=== PATIENT | female | born 1965 | race American Indian/Alaskan Native ===

== ENCOUNTER 2017-11-04 18:18 | Emergency (ER) | payer BC, OTHER ==
[2017-11-04 18:32] VITALS: BP 151/81; PULSE 82; RESP 16; TEMP 98.4; O2SAT 99
--- NOTE | 2017-11-04 19:40 | ED PDOC ---
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 denies: Sputum Additional History Per: Patient Additional Complaint(s): 51yo female, presents to ER for evaluation of bodyaches and since last week, she has been having a dry cough, sore throat, and bodyaches. Patient states she visited her PMD who informed her she might he coming down with something and gave her medication for sinus congestion. Patient states since then, she has had increased pain to the right side of her neck and today felt lightheaded and thought she was going to pass out. She also reports nausea but denies any vomiting, diarrhea, o constipation. She also denies any rhinorrhea, rash, swelling or recent travels. 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 She denies any other medical complaints. PMD: Dennis Tate Past Medical History Reviewed: Historical Data, Nursing Documentation, Vital Signs Vital Signs: Last Vital Signs Temp 98.4 F 11/04/17 18:29 Pulse 82 11/04/17 18:29 Resp 16 11/04/17 18:29 BP 151/81 H 11/04/17 18:29 Pulse Ox 99 11/04/17 19:53 - Medical History PMH: No Chronic Diseases - Surgical History Surgical History: ( x 2) - Family History Family History: States: CAD, Other Other Family History: cancer - Social History Current smoker - smoking cessation education provided: No Alcohol: Occasional Drugs: Denies - Home Medications Home Medications: Ambulatory Orders Medication Instructions Recorded LORazepam [Ativan] 1 mg PO Q12 PRN #6 tab 12/11/14 Cyclobenzaprine [Flexeril] 5 mg PO Q8 PRN #10 tab 11/04/17 Ibuprofen [Motrin Tab] 600 mg PO Q8 PRN #60 tab 11/04/17 Lidocaine 5% [Lidoderm] 1 ea TD DAILY PRN #10 patch 11/04/17 - Allergies Allergies/Adverse Reactions: Allergies Allergy/AdvReac Type Severity Reaction Status Date / Time pain medication Allergy numbness Uncoded 11/04/17 18:29 Curb-65 Severity Score - CURB-65 Severity Score Confusion: No Bun >19mg/dl (>7mmol/L): No Respiratory Rate greater than/equal to 30: No Systolic BP <90 or Diastolic BP less than/equal 60mmHg: No Age >64: No Curb-65 Score: 0 Percentage 30-day mortality: 0.6% Review of Systems ROS Statement: Except As Marked, All Systems Reviewed And Found Negative (as per HPI) Constitutional: Positive for: Malaise ENT: Positive for: Throat Pain Cardiovascular: Positive for: Light Headedness Respiratory: Positive for: Cough. Negative for: Sputum Gastrointestinal: Positive for: Nausea. Negative for: Vomiting, Diarrhea Physical Exam - Reviewed Nursing Documentation Reviewed: Yes Vital Signs Reviewed: Yes - Physical Exam Appears: Positive for: Non-toxic, No Acute Distress Head Exam: Positive for: ATRAUMATIC, NORMOCEPHALIC Skin: Positive for: Warm, Dry Eye Exam: Positive for: EOMI, PERRL ENT: Positive for: Pharyngeal Erythema (mild), Other (subtle uvula edema vs. anatommic variant of uvula). Negative for: Tonsillar Exudate, Tonsillar Swelling Neck: Positive for: Normal, Supple (tenderness to palpation of right paraspinal muscles; no bony tenderness, no meningismus) Cardiovascular/Chest: Positive for: Regular Rate, Rhythm, Chest Non Tender. Negative for: Murmur Respiratory: Positive for: Normal Breath Sounds. Negative for: Wheezing Gastrointestinal/Abdominal: Positive for: Soft. Negative for: Tenderness Back: Positive for: Normal Inspection. Negative for: Decreased ROM Extremity: Positive for: Normal ROM. Negative for: Deformity Lymphatic: Negative for: Adenopathy Neurologic/Psych: Positive for: Alert, Oriented. Negative for: Motor/Sensory Deficits - Laboratory Results Result Diagrams: 11/04/17 19:45 11/04/17 19:45 - ECG O2 Sat by Pulse Oximetry: 99 (RA) Pulse Ox Interpretation: Normal Medical Decision Making Medical Decision Making: Impression: Bodyaches and URI Differential: Including but not limited to viral illness, influenza, strep throat, dehydration, electrolyte abnormalities Plan: -- EKG -- Labs -- Tylenol 975 mg PO -- Toradol 30mg IV -- Infectious mono -- Rapid flu -- Rapid strep Labs unremarkable CXR No inf/eff Cspine: No fx/dislocation DW pt findings and plan of care. Continue allergy medications. rest. anti- inflammatory. f/u pmd. 2-3 days. Scribe Attestation: Documented by Chantelle Fitzpatrick, acting as a scribe for Kelly Flood MD Provider Scribe Attestation: All medical record entries made by the Scribe were at my direction and personally dictated by me. I have reviewed the chart and agree that the record accurately reflects my personal performance of the history, physical exam, medical decision making, and the department course for this patient. I have also personally directed, reviewed, and agree with the discharge instructions and disposition. Disposition - Clinical Impression Clinical Impression: Myalgia, Torticollis Counseled Patient/Family Regarding: Studies Performed, Diagnosis, Need For Followup, Rx Given - Disposition Referrals: Barbie Coe MD [Medical Doctor] - 11/08/17 Disposition: Routine/Home Disposition Time: 22:17 Condition: GOOD Prescriptions: Cyclobenzaprine [Flexeril] 5 mg PO Q8 PRN #10 tab PRN Reason: muscle spasm Ibuprofen [Motrin Tab] 600 mg PO Q8 PRN #60 tab PRN Reason: Pain, Moderate (4-7) Lidocaine 5% [Lidoderm] 1 ea TD DAILY PRN #10 patch PRN Reason: PAIN Instructions: Torticollis, Adult, Muscle and Bone Pain (DC) Forms: [facility] ED School/Work Excuse
[2017-11-04 20:10] LABS: BASO # 0.1 K/uL (0.0-0.2); BASO % 0.7 % (0.0-2.0); EOS # 0.3 K/uL (0.0-0.7); EOS % 2.8 % (0.0-4.0); HEMOGLOBIN 12.1 g/dL (12.0-16.0); LYMPH # 4.2 K/uL (1.0-4.3); LYMPH % 37.8 % (20.0-40.0); MEAN CELL VOLUME 84.2 fl (81.0-99.0); MEAN CORPUSCULAR HEMOGLOBIN 28.1 pg (27.0-31.0); MEAN CORPUSCULAR HGB CONC 33.4 g/dL (33.0-37.0); MEAN PLATELET VOLUME 8.1 fl (7.2-11.7); MONO # 1.1 K/uL (0.0-0.8); MONO % 9.6 % (0.0-10.0); NEUT # 5.5 K/uL (1.8-7.0); NEUT % 49.1 % (50.0-75.0); NRBC % 0.1 % (0.0-0.0); RBC 4.32 Mil/uL (3.80-5.20); RED CELL DISTRIBUTION WIDTH 13.7 % (11.5-14.5); WHITE BLOOD COUNT 11.2 K/uL (4.8-10.8)
[2017-11-04 20:18] LABS: ALB/GLOB RATIO 1.1 (1.0-2.1); ALBUMIN 4.3 g/dL (3.5-5.0); ALT/SGPT 29 U/L (9-52); AST/SGOT 30 U/L (14-36); BLOOD UREA NITROGEN 11 mg/dl (7-17); CALCIUM 9.6 mg/dL (8.4-10.2); GFR AFRICAN-AMERICAN > 60; GFR NON-AFRICAN AMERICAN > 60
--- NOTE | 2017-11-05 08:29 | RAD ---
PROCEDURE: Cervical Spine Radiographs. HISTORY: Pain. COMPARISON: None. FINDINGS: BONES: Limited spondylolisthesis appreciated C4-5 without definite fracture appreciable. C4 slightly anterior to C5 by 2 mm. Multilevel facet arthropathy is appreciate which could be the cause of the spondylolisthesis. The curvature is otherwise straightened. Gross osteophytic development seen anteriorly at C5-6 with none otherwise evident. The odontoid process appears intact. No destructive bony lesion appreciated. DISC SPACES: Normal. SOFT TISSUES: Normal. No prevertebral soft tissue swelling. OTHER FINDINGS: None. IMPRESSION: Limited grade 1 spondylolisthesis C4-5 tension on the basis of facet arthropathy. No fracture appreciable grossly. Advanced spondylosis C5-6 anteriorly. Further characterization can provided by CT or MRI as clinically warranted.
--- NOTE | 2017-11-05 08:45 | RAD ---
HISTORY: cough bodyaches COMPARISON: Chest radiographs 03/21/2016. TECHNIQUE: Chest PA and lateral FINDINGS: LUNGS: No active pulmonary disease. PLEURA: No significant pleural effusion identified. No pneumothorax apparent. CARDIOVASCULAR: Normal. OSSEOUS STRUCTURES: No significant abnormalities. VISUALIZED UPPER ABDOMEN: Normal. OTHER FINDINGS: None. IMPRESSION: No interval acute cardiopulmonary disease appreciated.
--- NOTE | 2017-11-05 17:50 | CARD ---
APPROVED REPORT EKG Measurement Heart [id number] <Conclusion> Normal sinus rhythm with sinus arrhythmia Normal ECG
== END 2017-11-04 23:11 | disposition home or self-care (01) ==
LOC: H.ER 18:18
DX: M79.1 Myalgia (principal); M43.6 Torticollis
CPT/HCPCS: 71046; 72040; 80053; 81025; 82550; 82948; 83605; 83735; 84100; 85025; 86308; 87040; 87070; 87430; 87804; 93005; 96374; 99285; J1885

== ENCOUNTER 2017-12-31 15:48 | Observation (INO) | payer BC ==
[2017-12-31 15:57] VITALS: BMI 31.4
--- NOTE | 2017-12-31 17:44 | ED PDOC ---
HPI: Chest Pain Time Seen by Provider: 12/31/17 16:38 Chief Complaint (Nursing): Chest Pain Chief Complaint (Provider): CP History Per: Patient History/Exam Limitations: no limitations Additional Complaint(s): Pt reports midsternal chest pain that started while walking today, associated with SOB and palpitations, lasted ~3 minutes, resolved with rest. Now with upper back pain. Denies fever, nausea, vomiting, cough. Past Medical History Reviewed: Nursing Documentation, Vital Signs Vital Signs: Last Vital Signs Temp 98.2 F 01/01/18 12:41 Pulse 76 01/01/18 12:41 Resp 20 01/01/18 12:41 BP 119/77 01/01/18 12:41 Pulse Ox 100 01/01/18 12:41 - Medical History PMH: No Chronic Diseases - Surgical History Surgical History: ( x 2) - Family History Family History: States: CAD (Brother [place] 50s) - Living Arrangements Living Arrangements: With Family - Social History Current smoker - smoking cessation education provided: No Alcohol: None - Home Medications Home Medications: Ambulatory Orders Medication Instructions Recorded Cyclobenzaprine [Flexeril] 5 mg PO Q8 PRN #10 tab 11/04/17 Ibuprofen [Motrin Tab] 600 mg PO Q8 PRN #60 tab 11/04/17 Aspirin [Aspirin Chewable] 81 mg PO DAILY chew 01/01/18 - Allergies Allergies/Adverse Reactions: Allergies Allergy/AdvReac Type Severity Reaction Status Date / Time pain medication Allergy numbness Uncoded 12/31/17 15:59 SILAS Risk Score for UA/NSTEMI - SILAS Risk Score Age > 64: NO 3 or more CAD Risk Factors: NO Known CAD (Stenosis greater than 50%): NO Aspirin use in past 7 days: NO Severe Angina: YES EKG ST changes greater than 0.5mm: NO Positive Cardiac Marker: NO SILAS Score: 1 Risk %: 5% Review of Systems Constitutional: Negative for: Fever, Chills Cardiovascular: Positive for: Chest Pain, Palpitations Respiratory: Positive for: Shortness of Breath. Negative for: Cough, Sputum, Wheezing Gastrointestinal: Negative for: Nausea, Vomiting, Abdominal Pain, Diarrhea Musculoskeletal: Positive for: Neck Pain, Back Pain. Negative for: Leg Pain Skin: Negative for: Rash, Lesions Neurological: Positive for: Dizziness. Negative for: Weakness, Numbness, Headache Physical Exam - Reviewed Nursing Documentation Reviewed: Yes Vital Signs Reviewed: Yes - Physical Exam Appears: Positive for: Well, No Acute Distress (Speaking full sentences) Skin: Positive for: Normal Color, Warm, Dry Eye Exam: Positive for: Normal appearance, EOMI, PERRL Cardiovascular/Chest: Positive for: Regular Rate, Rhythm Respiratory: Positive for: Normal Breath Sounds. Negative for: Rales, Rhonchi, Wheezing Gastrointestinal/Abdominal: Positive for: Normal Exam Back: Positive for: Normal Inspection Extremity: Positive for: Normal ROM. Negative for: Tenderness, Pedal Edema, Swelling Neurologic/Psych: Positive for: Alert, lsw II-XII, Oriented - Laboratory Results Result Diagrams: 12/31/17 18:02 01/01/18 04:45 - ECG Interpretation Of ECG: NSR @ 89, no ST-T changes. O2 Sat by Pulse Oximetry: 100 Pulse Ox Interpretation: Normal Medical Decision Making Medical Decision Makin yo female with CP, SOB and palpitations. - labs - EKG - CXR Accession No. : [id number] Patient Name / ID : FANNIE VAUGHAN / [id number] Exam Date : 12/31/2017 18:01:01 ( Approved ) Study Comment : Sex / Age : F / 52Y Creator : suzan schwartz Dictator : George Middleton MD Flower Grader : Dry Heat Cabinet Attendant : George Middleton MD Approver2 : Report Date : 12/31/2017 18:14:18 My Comment : HISTORY: CP COMPARISON: Chest radiograph dated 11/04/2017. FINDINGS: LUNGS: No active pulmonary disease. PLEURA: No significant pleural effusion identified, no pneumothorax apparent. CARDIOVASCULAR: Normal. OSSEOUS STRUCTURES: Unchanged. VISUALIZED UPPER ABDOMEN: Normal. OTHER FINDINGS: None. IMPRESSION: No active disease. Disposition - Clinical Impression Clinical Impression: Acute chest pain - Patient ED Disposition Is Patient to be Admitted: Yes - Disposition Disposition Time: 19:11 Condition: STABLE - Pt Status Changed To: Hospital Disposition Of: Observation - POA Present On Arrival: None
[2017-12-31 18:06] LABS: BASO % 0.4 % (0.0-2.0); EOS # 0.2 K/uL (0.0-0.7); EOS % 1.9 % (0.0-4.0); HEMOGLOBIN 12.1 g/dL (12.0-16.0); LYMPH # 3.4 K/uL (1.0-4.3); LYMPH % 33.7 % (20.0-40.0); MEAN CELL VOLUME 83.2 fl (81.0-99.0); MEAN CORPUSCULAR HEMOGLOBIN 27.9 pg (27.0-31.0); MEAN CORPUSCULAR HGB CONC 33.6 g/dL (33.0-37.0); MEAN PLATELET VOLUME 7.8 fl (7.2-11.7); MONO % 9.6 % (0.0-10.0); NEUT # 5.4 K/uL (1.8-7.0); NEUT % 54.4 % (50.0-75.0); NRBC % 0.2 % (0.0-0.0); RBC 4.35 Mil/uL (3.80-5.20); RED CELL DISTRIBUTION WIDTH 13.6 % (11.5-14.5)
--- NOTE | 2017-12-31 18:21 | RAD ---
HISTORY: CP COMPARISON: Chest radiograph dated 11/04/2017. FINDINGS: LUNGS: No active pulmonary disease. PLEURA: No significant pleural effusion identified, no pneumothorax apparent. CARDIOVASCULAR: Normal. OSSEOUS STRUCTURES: Unchanged. VISUALIZED UPPER ABDOMEN: Normal. OTHER FINDINGS: None. IMPRESSION: No active disease.
[2017-12-31 18:23] LABS: INR 1.1 (0.9-1.2); PROTHROMBIN TIME 12.2 Seconds (9.8-13.1)
[2017-12-31 18:36] LABS: ALB/GLOB RATIO 1.2 (1.0-2.1); ALBUMIN 4.4 g/dL (3.5-5.0); ALT/SGPT 23 U/L (9-52); AST/SGOT 24 U/L (14-36); BLOOD UREA NITROGEN 13 mg/dl (7-17); CALCIUM 9.6 mg/dL (8.4-10.2); GFR AFRICAN-AMERICAN > 60; GFR NON-AFRICAN AMERICAN > 60
[2017-12-31 20:00] LABS: SQUAMOUS EPITHIAL 7 /hpf (0-5); URINE BACTERIA FEW (<OCC); URINE BILIRUBIN NEGATIVE (NEGATIVE); URINE BLOOD NEGATIVE (NEGATIVE); URINE CLARITY CLOUDY (Clear); URINE COLOR YELLOW (YELLOW); URINE GLUCOSE (UA) NEG (Normal); URINE LEUKOCYTE ESTERASE LARGE Leu/uL (Negative); URINE PROTEIN NEGATIVE (NEGATIVE); URINE UROBILINOGEN 0.2-1.0 mg/dL (0.2-1.0)
[2018-01-01 06:22] LABS: ALB/GLOB RATIO 1.2 (1.0-2.1); ALBUMIN 4.1 g/dL (3.5-5.0); ALT/SGPT 22 U/L (9-52); AST/SGOT 21 U/L (14-36); BLOOD UREA NITROGEN 9 mg/dl (7-17); CALCIUM 9.4 mg/dL (8.4-10.2); GFR AFRICAN-AMERICAN > 60; GFR NON-AFRICAN AMERICAN > 60; HDL CHOLESTEROL 35 MG/DL (30-70)
[2018-01-01 06:30] LABS: LDL CHOLESTEROL 137 mg/dL (0-129)
--- NOTE | 2018-01-01 07:59 | CP.PCM.HP ---
History of Present Illness - History of Present Illness History of Present Illness: pt admitted for cp. states pain was described as "discomfort". denies pain any other complaints at present. no f/c, n/v/d. trops noted. outpt echo noted. pt has been under care for cp x 2 months Present on Admission - Present on Admission Any Indicators Present on Admission: No Review of Systems - Cardiovascular Cardiovascular: As Per HPI, Chest Pain - Musculoskeletal Musculoskeletal: As Per HPI, Back Pain Past Patient History - Infectious Disease Hx of Infectious Diseases: None - Past Medical History & Family History Past Medical History?: Yes - Past Social History Smoking Status: Never Smoked - CARDIAC Hx Cardiac Disorders: Yes Hx Hypertension: Yes - PULMONARY Hx Respiratory Disorders: No - NEUROLOGICAL Hx Neurological Disorder: Yes Hx Vertigo: Yes - HEENT Hx HEENT Problems: No - RENAL Hx Chronic Kidney Disease: No - ENDOCRINE/METABOLIC Hx Endocrine Disorders: No - HEMATOLOGICAL/ONCOLOGICAL Hx Blood Disorders: No Hx AIDS: No Hx Human Immunodeficiency Virus (HIV): No - INTEGUMENTARY Hx Dermatological Problems: No - MUSCULOSKELETAL/RHEUMATOLOGICAL Hx Musculoskeletal Disorders: No Hx Falls: No - GASTROINTESTINAL Hx Gastrointestinal Disorders: No - GENITOURINARY/GYNECOLOGICAL Hx Genitourinary Disorders: No - PSYCHIATRIC Hx Psychophysiologic Disorder: No Hx Substance Use: No - SURGICAL HISTORY Hx Surgeries: Yes Hx Section: Yes (x2) Hx Tubal Ligation: Yes - ANESTHESIA Hx Anesthesia: Yes Hx Anesthesia Reactions: No Meds Allergies/Adverse Reactions: Allergies Allergy/AdvReac Type Severity Reaction Status Date / Time pain medication Allergy numbness Uncoded 12/31/17 15:59 Physical Exam - Constitutional Appears: Well, Non-toxic, No Acute Distress - Head Exam Head Exam: ATRAUMATIC, NORMAL INSPECTION, NORMOCEPHALIC - Eye Exam Eye Exam: EOMI, Normal appearance, PERRL Pupil Exam: NORMAL ACCOMODATION, PERRL - ENT Exam ENT Exam: Mucous Membranes Moist, Normal Exam - Neck Exam Neck exam: Positive for: Normal Inspection - Respiratory Exam Respiratory Exam: Clear to Auscultation Bilateral, NORMAL BREATHING PATTERN - Cardiovascular Exam Cardiovascular Exam: REGULAR RHYTHM, RRR, +S1, +S2 - GI/Abdominal Exam GI & Abdominal Exam: Normal Bowel Sounds, Soft. absent: Tenderness - Exam External exam: NORMAL EXTERNAL EXAM - Extremities Exam Extremities exam: Positive for: full ROM, normal capillary refill, normal inspection, pedal pulses present - Back Exam Back exam: FULL ROM, NORMAL INSPECTION - Neurological Exam Neurological exam: Alert, CN II-XII Intact, Normal Gait, Oriented x3, Reflexes Normal - Psychiatric Exam Psychiatric exam: Normal Affect, Normal Mood - Skin Skin Exam: Dry, Intact, Normal Color, Warm Results - Vital Signs Recent Vital Signs: Last Vital Signs Temp 98.1 F 01/01/18 05:20 Pulse 73 01/01/18 05:20 Resp 18 01/01/18 05:20 BP 117/73 01/01/18 05:20 Pulse Ox 100 01/01/18 05:20 - Labs Result Diagrams: 12/31/17 18:02 01/01/18 04:45 Labs: Laboratory Results - last 24 hr 12/31/17 12/31/17 12/31/17 18:02 18:02 18:02 WBC 10.0 RBC 4.35 Hgb 12.1 Hct 36.2 MCV 83.2 MCH 27.9 MCHC 33.6 RDW 13.6 Plt Count 323 MPV 7.8 Neut % (Auto) 54.4 Lymph % (Auto) 33.7 Gove % (Auto) 9.6 Eos % (Auto) 1.9 Baso % (Auto) 0.4 Neut # (Auto) 5.4 Lymph # (Auto) 3.4 Gove # (Auto) 1.0 H Eos # (Auto) 0.2 Baso # (Auto) 0.0 PT 12.2 INR 1.1 APTT 29.0 D-Dimer, Quantitative 108 Sodium 141 Potassium 3.9 Chloride 105 Carbon Dioxide 23 Anion Gap 17 BUN 13 Creatinine 0.7 Est GFR ( Amer) > 60 Est GFR (Non-Af Amer) > 60 Random Glucose 86 Calcium 9.6 Total Bilirubin 0.8 AST 24 ALT 23 Alkaline Phosphatase 83 Troponin I < 0.0120 Total Protein 8.1 Albumin 4.4 Globulin 3.7 Albumin/Globulin Ratio 1.2 Triglycerides Cholesterol LDL Cholesterol Direct HDL Cholesterol TSH 3rd Generation 0.43 L Urine Color Urine Clarity Urine pH Ur Specific [place] Urine Protein Urine Glucose (UA) Urine Ketones Urine Blood Urine Nitrate Urine Bilirubin Urine Urobilinogen Ur Leukocyte Esterase Urine RBC (Auto) Urine Microscopic WBC Ur Squamous Epith Cells Urine Bacteria 12/31/17 01/01/18 19:32 04:45 WBC RBC Hgb Hct MCV MCH MCHC RDW Plt Count MPV Neut % (Auto) Lymph % (Auto) Gove % (Auto) Eos % (Auto) Baso % (Auto) Neut # (Auto) Lymph # (Auto) Gove # (Auto) Eos # (Auto) Baso # (Auto) PT INR APTT D-Dimer, Quantitative Sodium 141 Potassium 4.1 Chloride 103 Carbon Dioxide 26 Anion Gap 16 BUN 9 Creatinine 0.7 Est GFR ( Amer) > 60 Est GFR (Non-Af Amer) > 60 Random Glucose 95 Calcium 9.4 Total Bilirubin 1.2 AST 21 ALT 22 Alkaline Phosphatase 75 Troponin I < 0.0120 Total Protein 7.6 Albumin 4.1 Globulin 3.5 Albumin/Globulin Ratio 1.2 Triglycerides 142 Cholesterol 214 H LDL Cholesterol Direct 137 H HDL Cholesterol 35 TSH 3rd Generation Urine Color Yellow Urine Clarity Cloudy Urine pH 6.0 Ur Specific [place] 1.020 Urine Protein Negative Urine Glucose (UA) Neg Urine Ketones Negative Urine Blood Negative Urine Nitrate Negative Urine Bilirubin Negative Urine Urobilinogen 0.2-1.0 Ur Leukocyte Esterase Large Urine RBC (Auto) 2 Urine Microscopic WBC 232 H Ur Squamous Epith Cells 7 H Urine Bacteria Few H Assessment & Plan (1) Chest pain Assessment and Plan: trop neg x 2, asa cardio trop at 12noon outpt echo noted ?? muscular Status: Acute (2) DVT prophylaxis Assessment and Plan: scd and ae hose ambulation Status: Acute Decision To Admit - Pt Status Changed To: Hospital Disposition Of: Observation - . Bed Request Type: Telemetry Admitting Physician: Timbo Sherman
[2018-01-01 08:15] VITALS: RESP 20
[2018-01-01 09:58] VITALS: PULSE 76
--- NOTE | 2018-01-01 10:56 | CP.PCM.CON ---
History of Present Illness - History of Present Illness History of Present Illness: I was asked to see patient by Dr Sabillon. Patient is a 52 year old female with no sginficant PMH who presents with chest pain. Symptoms have been intermittent for the last few days. She describes substernal pressure and sharp pain of the chest. She felt dyspneic and presented to [facility]. She denies current chest pain. Review of Systems - Constitutional Constitutional: absent: As Per HPI, Anorexia, Chills, Daytime Sleepiness, Excessive Sweating, Fatigue, Fever, Frequent Falls, Headache, Increased Appetite , Lethargy, Malaise, Night Sweats, Snoring, Sleep Apnea, Weight Gain, Weight Loss, Weakness, Other - EENT Eyes: absent: As Per HPI, Blind Spots, Blurred Vision, Change in Vision, Decreased Night Vision, Diplopia, Discharge, Dry Eye, Exophthalmos, Floaters, Irritation, Itchy Eyes, Loss of Peripheral Vision, Pain, Photophobia, Requires Corrective Lenses, Sees Flashes, Spots in Vision, Tunnel Vision, Other Visual Disturbances, Loss of Vision, Other Ears: absent: As Per HPI, Decreased Hearing, Ear Discharge, Ear Pain, Tinnitus, Abnormal Hearing, Disequilibrium, Dizziness, Other Nose/Mouth/Throat: absent: As Per HPI, Epistaxis, Nasal Congestion, Nasal Discharge, Nasal Obstruction, Nasal Trauma, Nose Pain, Post Nasal Drip, Sinus Pain, Sinus Pressure, Bleeding Gums, Change in Voice, Dental Pain, Dry Mouth, Dysphagia, Halitosis, Hoarsness, Lip Swelling, Mouth Lesions, Mouth Pain, Odynophagia, Sore Throat, Throat Swelling, Tongue Swelling, Facial Pain, Neck Pain, Neck Mass, Other - Cardiovascular Cardiovascular: Chest Pain, Dyspnea - Respiratory Respiratory: Dyspnea - Gastrointestinal Gastrointestinal: absent: As Per HPI, Abdominal Pain, Belching, Bloating, Change in Bowel Habits, Change in Stool Character, Coffee Ground Emesis, Constipation, Cramping, Diarrhea, Dyspepsia, Dysphagia, Early Satiety, Excessive Flatus, Fecal Incontinence, Heartburn, Hematemesis, Hematochezia, Loose Stools, Melena, Nausea, Odynophagia, Temesmus, Vomiting, Other - Genitourinary Genitourinary: absent: As Per HPI, Change in Urinary Stream, Difficulty Urinating, Dysuria, Flank Pain, Hematuria, Pyuria, Nocturia, Urinary Incontinence, Urinary Frequency, Urinary Hesitance, Urinary Urgency, Voiding Freq/Small Amts, Freq UTI, Hx Renal/Bladder Calculi, Hx /Renal Surgery, Bladder Distension, Other - Musculoskeletal Musculoskeletal: absent: As Per HPI, Abnormal Gait, Arthralgias, Atrophy, Back Pain, Deformity, Joint Swelling, Limited Range of Motion, Loss of Height, Muscle Cramps, Muscle Weakness, Myalgias, Neck Pain, Numbness, Radiating Pain into Limb, Stiffness, Tingling, Other - Integumentary Integumentary: absent: As Per HPI, Acne, Alopecia, Bleeding Lesions, Change in Hair, Change in Nails, Change in Pigmentation, Changing Lesions, Dry Skin, Erythema, Furuncle, Hirsutism, Lesions, New Lesions, Non-Healing Lesions, Photosensitivity, Pruritus, Rash, Skin Pain, Skin Ulcer, Sores, Striae, Swelling , Unusual Bruising, Wounds, Jaundice, Other - Neurological Neurological: absent: As Per HPI, Abnormal Gait, Abnormal Hearing, Abnormal Movements, Abnormal Speech, Behavioral Changes, Burning Sensations, Confusion, Convulsions, Disequilibrium, Dizziness, Numbness, Focal Weakness, Frequent Falls , Headaches, Lack of Coordination, Loss of Vision, Memory Loss, Paresthesias, Radicular Pain, Restless Legs, Sensory Deficit, Syncope, Tingling, Tremor, Vertigo, Weakness, Other Visual Disturbances, Other - Psychiatric Psychiatric: absent: As Per HPI, Abnormal Sleep Pattern, Anhedonia, Anxiety, Auditory Hallucinations, Behavioral Changes, Change in Appetite, Change in Libido, Confusion, Depression, Difficulty Concentrating, Hallucinations, Homicidal Ideation, Hopelessness, Irritability, Memory Loss, Mood Swings, Panic Attacks, Paranoia, Suicidal Ideation, Visual Hallucinations, Tactile Hallucinations, Other - Endocrine Endocrine: absent: As Per HPI, Change in Body Appearance, Change in Libido, Cold Intolorance, Deepening of Voice, Excessive Sweating, Fatigue, Flushing, Heat Intolorance, Increase in Ring/Shoe/Hat Size, Palpitations, Polydipsia, Polyphagia, Polyuria, Other - Hematologic/Lymphatic Hematologic: absent: As Per HPI, Easy Bleeding, Easy Bruising, Lymphadenopathy, Other Past Patient History - Infectious Disease Hx of Infectious Diseases: None - Past Medical History & Family History Past Medical History?: Yes - Past Social History Smoking Status: Never Smoked - CARDIAC Hx Cardiac Disorders: Yes Hx Hypertension: Yes - PULMONARY Hx Respiratory Disorders: No - NEUROLOGICAL Hx Neurological Disorder: Yes Hx Vertigo: Yes - HEENT Hx HEENT Problems: No - RENAL Hx Chronic Kidney Disease: No - ENDOCRINE/METABOLIC Hx Endocrine Disorders: No - HEMATOLOGICAL/ONCOLOGICAL Hx Blood Disorders: No Hx AIDS: No Hx Human Immunodeficiency Virus (HIV): No - INTEGUMENTARY Hx Dermatological Problems: No - MUSCULOSKELETAL/RHEUMATOLOGICAL Hx Musculoskeletal Disorders: No Hx Falls: No - GASTROINTESTINAL Hx Gastrointestinal Disorders: No - GENITOURINARY/GYNECOLOGICAL Hx Genitourinary Disorders: No - PSYCHIATRIC Hx Psychophysiologic Disorder: No Hx Substance Use: No - SURGICAL HISTORY Hx Surgeries: Yes Hx Section: Yes (x2) Hx Tubal Ligation: Yes - ANESTHESIA Hx Anesthesia: Yes Hx Anesthesia Reactions: No Meds Allergies/Adverse Reactions: Allergies Allergy/AdvReac Type Severity Reaction Status Date / Time pain medication Allergy numbness Uncoded 12/31/17 15:59 - Medications Medications: Current Medications Aspirin (Aspirin Chewable) 81 mg PO DAILY WENDY Last Admin: 01/01/18 09:33 Dose: 81 mg Physical Exam - Constitutional Appears: Non-toxic - Head Exam Head Exam: NORMAL INSPECTION - Eye Exam Eye Exam: Normal appearance - ENT Exam ENT Exam: Mucous Membranes Moist - Neck Exam Neck exam: Positive for: Full Rom - Respiratory Exam Respiratory Exam: NORMAL BREATHING PATTERN - Cardiovascular Exam Cardiovascular Exam: REGULAR RHYTHM - GI/Abdominal Exam GI & Abdominal Exam: Normal Bowel Sounds - Rectal Exam Rectal Exam: Deferred - Extremities Exam Extremities exam: Positive for: normal inspection. Negative for: pedal edema - Back Exam Back exam: NORMAL INSPECTION - Neurological Exam Neurological exam: Alert, Oriented x3 - Psychiatric Exam Psychiatric exam: Normal Affect - Skin Skin Exam: Normal Color Results - Vital Signs Recent Vital Signs: Last Vital Signs Temp 98.1 F 01/01/18 09:00 Pulse 76 01/01/18 09:00 Resp 20 01/01/18 09:00 BP 105/64 01/01/18 09:00 Pulse Ox 99 01/01/18 09:00 - Labs Result Diagrams: 12/31/17 18:02 01/01/18 04:45 Labs: Laboratory Results - last 24 hr 12/31/17 12/31/17 12/31/17 18:02 18:02 18:02 WBC 10.0 RBC 4.35 Hgb 12.1 Hct 36.2 MCV 83.2 MCH 27.9 MCHC 33.6 RDW 13.6 Plt Count 323 MPV 7.8 Neut % (Auto) 54.4 Lymph % (Auto) 33.7 [place] % (Auto) 9.6 Eos % (Auto) 1.9 Baso % (Auto) 0.4 Neut # (Auto) 5.4 Lymph # (Auto) 3.4 [place] # (Auto) 1.0 H Eos # (Auto) 0.2 Baso # (Auto) 0.0 PT 12.2 INR 1.1 APTT 29.0 D-Dimer, Quantitative 108 Sodium 141 Potassium 3.9 Chloride 105 Carbon Dioxide 23 Anion Gap 17 BUN 13 Creatinine 0.7 Est GFR ( Amer) > 60 Est GFR (Non-Af Amer) > 60 Random Glucose 86 Calcium 9.6 Total Bilirubin 0.8 AST 24 ALT 23 Alkaline Phosphatase 83 Troponin I < 0.0120 Total Protein 8.1 Albumin 4.4 Globulin 3.7 Albumin/Globulin Ratio 1.2 Triglycerides Cholesterol LDL Cholesterol Direct HDL Cholesterol TSH 3rd Generation 0.43 L Urine Color Urine Clarity Urine pH Ur Specific [place] Urine Protein Urine Glucose (UA) Urine Ketones Urine Blood Urine Nitrate Urine Bilirubin Urine Urobilinogen Ur Leukocyte Esterase Urine RBC (Auto) Urine Microscopic WBC Ur Squamous Epith Cells Urine Bacteria 12/31/17 01/01/18 19:32 04:45 WBC RBC Hgb Hct MCV MCH MCHC RDW Plt Count MPV Neut % (Auto) Lymph % (Auto) [place] % (Auto) Eos % (Auto) Baso % (Auto) Neut # (Auto) Lymph # (Auto) [place] # (Auto) Eos # (Auto) Baso # (Auto) PT INR APTT D-Dimer, Quantitative Sodium 141 Potassium 4.1 Chloride 103 Carbon Dioxide 26 Anion Gap 16 BUN 9 Creatinine 0.7 Est GFR ( Amer) > 60 Est GFR (Non-Af Amer) > 60 Random Glucose 95 Calcium 9.4 Total Bilirubin 1.2 AST 21 ALT 22 Alkaline Phosphatase 75 Troponin I < 0.0120 Total Protein 7.6 Albumin 4.1 Globulin 3.5 Albumin/Globulin Ratio 1.2 Triglycerides 142 Cholesterol 214 H LDL Cholesterol Direct 137 H HDL Cholesterol 35 TSH 3rd Generation Urine Color Yellow Urine Clarity Cloudy Urine pH 6.0 Ur Specific [place] 1.020 Urine Protein Negative Urine Glucose (UA) Neg Urine Ketones Negative Urine Blood Negative Urine Nitrate Negative Urine Bilirubin Negative Urine Urobilinogen 0.2-1.0 Ur Leukocyte Esterase Large Urine RBC (Auto) 2 Urine Microscopic WBC 232 H Ur Squamous Epith Cells 7 H Urine Bacteria Few H - EKG Data EKG Interpreted by: Myself EKG shows normal: Sinus rhythm Assessment & Plan (1) Chest pain Assessment and Plan: patient has ruled out for myocardial infarction. would benefit from a stress test, but this can be performed as an outpatient. stable for discharge. Status: Acute
[2018-01-01 12:41] VITALS: BP 119/77; TEMP 98.2; O2SAT 100
--- NOTE | 2018-01-01 14:24 | CP.PCM.DIS ---
Provider - Provider Date of Admission: 12/31/17 19:11 Attending physician: Timbo Sherman MD Time Spent in preparation of Discharge (in minutes): 15 Diagnosis - Discharge Diagnosis (1) Chest pain Status: Acute (2) DVT prophylaxis Status: Acute Hospital Course - Lab Results Lab Results: Most Recent Lab Values WBC 10.0 K/uL (4.8-10.8) 12/31/17 18: RBC 4.35 Mil/uL (3.80-5.20) 12/31/17 18:02 Hgb 12.1 g/dL (12.0-16.0) 12/31/17 18: Hct 36.2 % (34.0-47.0) 12/31/17 18: MCV 83.2 fl (81.0-99.0) 12/31/17 18: MCH 27.9 pg (27.0-31.0) 12/31/17 18: MCHC 33.6 g/dL (33.0-37.0) 12/31/17 18: RDW 13.6 % (11.5-14.5) 12/31/17 18: Plt Count 323 K/uL (130-400) 12/31/17 18: MPV 7.8 fl (7.2-11.7) 12/31/17 18: Neut % (Auto) 54.4 % (50.0-75.0) 12/31/17 18: Lymph % (Auto) 33.7 % (20.0-40.0) 12/31/17 18: [place] % (Auto) 9.6 % (0.0-10.0) 12/31/17 18: Eos % (Auto) 1.9 % (0.0-4.0) 12/31/17 18: Baso % (Auto) 0.4 % (0.0-2.0) 12/31/17 18: Neut # (Auto) 5.4 K/uL (1.8-7.0) 12/31/17 18: Lymph # (Auto) 3.4 K/uL (1.0-4.3) 12/31/17 18: [place] # (Auto) 1.0 K/uL (0.0-0.8) H 12/31/17 18:02 Eos # (Auto) 0.2 K/uL (0.0-0.7) 12/31/17 18:02 Baso # (Auto) 0.0 K/uL (0.0-0.2) 12/31/17 18:02 PT 12.2 Seconds (9.8-13.1) 12/31/17 18:02 INR 1.1 (0.9-1.2) 12/31/17 18:02 APTT 29.0 Seconds (25.6-37.1) 12/31/17 18:02 D-Dimer, Quantitative 108 ng/mlDDU (0-230) 12/31/17 18:02 Sodium 141 mmol/l (132-148) 01/01/18 04:45 Potassium 4.1 MMOL/L (3.6-5.0) 01/01/18 04:45 Chloride 103 mmol/L (98-107) 01/01/18 04:45 Carbon Dioxide 26 mmol/L (22-30) 01/01/18 04:45 Anion Gap 16 (10-20) 01/01/18 04:45 BUN 9 mg/dl (7-17) 01/01/18 04:45 Creatinine 0.7 mg/dl (0.7-1.2) 01/01/18 04:45 Est GFR ( Amer) > 60 01/01/18 04:45 Est GFR (Non-Af Amer) > 60 01/01/18 04:45 Random Glucose 95 mg/dL (65-105) 01/01/18 04:45 Calcium 9.4 mg/dL (8.4-10.2) 01/01/18 04:45 Total Bilirubin 1.2 mg/dl (0.2-1.3) 01/01/18 04:45 AST 21 U/L (14-36) 01/01/18 04:45 ALT 22 U/L (9-52) 01/01/18 04:45 Alkaline Phosphatase 75 U/L (38-126) 01/01/18 04:45 Troponin I < 0.0120 ng/mL (0.00-0.120) 01/01/18 12:00 Total Protein 7.6 G/DL (6.3-8.2) 01/01/18 04:45 Albumin 4.1 g/dL (3.5-5.0) 01/01/18 04:45 Globulin 3.5 gm/dL (2.2-3.9) 01/01/18 04:45 Albumin/Globulin Ratio 1.2 (1.0-2.1) 01/01/18 04:45 Triglycerides 142 mg/DL (0-149) 01/01/18 04:45 Cholesterol 214 mg/dL (0-199) H 01/01/18 04:45 LDL Cholesterol Direct 137 mg/dL (0-129) H 01/01/18 04:45 HDL Cholesterol 35 MG/DL (30-70) 01/01/18 04:45 TSH 3rd Generation 0.43 mIU/ML (0.46-4.68) L 12/31/17 18:02 Urine Color Yellow (YELLOW) 12/31/17 19:32 Urine Clarity Cloudy (Clear) 12/31/17 19:32 Urine pH 6.0 (5.0-8.0) 12/31/17 19:32 Ur Specific [place] 1.020 (1.003-1.030) 12/31/17 19:32 Urine Protein Negative mg/dL (NEGATIVE) 12/31/17 19:32 Urine Glucose (UA) Neg mg/dL (Normal) 12/31/17 19:32 Urine Ketones Negative mg/dL (NEGATIVE) 12/31/17 19:32 Urine Blood Negative (NEGATIVE) 12/31/17 19:32 Urine Nitrate Negative (NEGATIVE) 12/31/17 19:32 Urine Bilirubin Negative (NEGATIVE) 12/31/17 19:32 Urine Urobilinogen 0.2-1.0 mg/dL (0.2-1.0) 12/31/17 19:32 Ur Leukocyte Esterase Large [place]/uL (Negative) 12/31/17 19:32 Urine RBC (Auto) 2 /hpf (0-3) 12/31/17 19:32 Urine Microscopic WBC 232 /hpf (0-5) H 12/31/17 19:32 Ur Squamous Epith Cells 7 /hpf (0-5) H 12/31/17 19:32 Urine Bacteria Few (<OCC) H 12/31/17 19:32 - Hospital Course Hospital Course: trops, asa cardio Discharge Exam - Head Exam Head Exam: NORMAL INSPECTION Discharge Plan - Follow Up Plan Condition: STABLE Disposition: HOME/ ROUTINE Instructions: Chest Pain, Chest Pain (DC) Additional Instructions: cleared by cardio, trops negative final dx- cp, ?? muscular, f/u rmg wednesday, rted prn, meds per med rec Activity as tolerated, heart healthy low fat, low cholesterol diet. Stress Test/ cardio f/u as out patient. Referrals: Timbo Sherman MD [Staff Provider] - Shelbie Doll MD [Staff Provider] -
--- NOTE | 2018-01-03 10:26 | CARD ---
APPROVED REPORT EKG Measurement Heart [id number] <Conclusion> Normal sinus rhythm Normal ECG
== END 2018-01-01 13:27 | disposition home or self-care (01) ==
LOC: H.ER 15:48 → H.ERHOLD 19:11 → H.TEL 22:38
PROVIDERS: ADMIT Family Medicine; ATTEND Family Medicine
DX: R07.89 Other chest pain (principal); I10 Essential (primary) hypertension; Z82.49 Family history of ischemic heart disease and other diseases of the circulatory system
CPT/HCPCS: 36415; 71045; 80053; 80061; 81003; 81025; 84443; 84484; 85025; 85378; 85610; 85730; 93005; 99283; G0378

== ENCOUNTER 2018-02-16 12:49 | Emergency (ER) | payer BC ==
[2018-02-16 12:49] VITALS: BMI 31.4
[2018-02-16 12:56] VITALS: O2SAT 98
--- NOTE | 2018-02-16 13:17 | ED PDOC ---
HPI: Chest Pain Time Seen by Provider: 02/16/18 12:58 Chief Complaint (Nursing): Chest Pain History Per: Patient Onset/Duration Of Symptoms: Days (1) Current Symptoms Are (Timing): Better Severity: Moderate Quality: Sharp Associated Symptoms: denies: Nausea, Dyspnea, Diaphoresis, Syncope Modifying Factors: None Exacerbating Factors: None Alleviating Factors: None Additional Complaint(s): Sharp left sided chest pain while walking today. Denies radiation or SOB. Recently admitted with nl stress and echo Past Medical History Vital Signs: Last Vital Signs Temp 98.8 F 02/16/18 12:52 Pulse 77 02/16/18 12:52 Resp 17 02/16/18 12:52 BP 128/77 02/16/18 12:52 Pulse Ox 98 02/16/18 13:15 - Medical History PMH: HTN Denies: HIV, Chronic Kidney Disease - Surgical History Surgical History: ( x 2) - Family History Family History: States: CAD (Brother [place] 50s) - Home Medications Home Medications: Ambulatory Orders Medication Instructions Recorded Cyclobenzaprine [Flexeril] 5 mg PO Q8 PRN #10 tab 11/04/17 Ibuprofen [Motrin Tab] 600 mg PO Q8 PRN #60 tab 11/04/17 Aspirin [Aspirin Chewable] 81 mg PO DAILY chew 01/01/18 - Allergies Allergies/Adverse Reactions: Allergies Allergy/AdvReac Type Severity Reaction Status Date / Time prednisone AdvReac RASH Verified 02/16/18 12:52 pain medication Allergy numbness Uncoded 12/31/17 15:59 Review of Systems ROS Statement: Except As Marked, All Systems Reviewed And Found Negative Cardiovascular: Positive for: Chest Pain Physical Exam - Reviewed Nursing Documentation Reviewed: Yes Vital Signs Reviewed: Yes - Physical Exam Appears: Positive for: Non-toxic, No Acute Distress Head Exam: Positive for: ATRAUMATIC, NORMAL INSPECTION, NORMOCEPHALIC Skin: Positive for: Normal Color, Warm, DRY Eye Exam: Positive for: EOMI, Normal appearance, PERRL ENT: Positive for: Normal ENT Inspection Neck: Positive for: Normal, Painless ROM Cardiovascular/Chest: Positive for: Regular Rate, Rhythm Respiratory: Positive for: CNT, Normal Breath Sounds Gastrointestinal/Abdominal: Positive for: Normal Exam, Soft Back: Positive for: Normal Inspection Extremity: Positive for: Normal ROM Neurologic/Psych: Positive for: Alert, Oriented - ECG O2 Sat by Pulse Oximetry: 98 Disposition - Clinical Impression Clinical Impression: Chest pain - Patient ED Disposition Is Patient to be Admitted: No Counseled Patient/Family Regarding: Studies Performed, Diagnosis, Need For Followup, Rx Given - Disposition Referrals: Bryant Park MD [Staff Provider] - Disposition: Routine/Home Disposition Time: 14:26 Condition: FAIR Instructions: Chest Pain Forms: [employer] (Ukrainian)
--- NOTE | 2018-02-16 14:03 | RAD ---
HISTORY: COMPARISON: 12/31/2017. TECHNIQUE: Chest PA and lateral FINDINGS: LINES AND TUBES: None. LUNG AND PLEURA: The lungs are well inflated and clear. No pleural effusion or pneumothorax. HEART AND MEDIASTINUM: The heart is not enlarged. The hilar and mediastinal contours are within normal limits. SKELETAL STRUCTURES: The bony structures are within normal limits for the patient's age. VISUALIZED UPPER ABDOMEN: Normal. OTHER FINDINGS: None. IMPRESSION: No active pulmonary disease.
[2018-02-16 14:38] VITALS: BP 134/68; PULSE 84; RESP 16; TEMP 98
--- NOTE | 2018-02-17 09:22 | CARD ---
APPROVED REPORT Date of service: 02/16/2018 EKG Measurement Heart [id number] <Conclusion> Normal sinus rhythm Normal ECG
== END 2018-02-16 14:43 | disposition home or self-care (01) ==
LOC: H.ER 12:49
DX: R07.9 Chest pain, unspecified (principal); I10 Essential (primary) hypertension